=== PATIENT | female | born 1980 ===

== ENCOUNTER 2017-10-13 00:25 | Emergency (ER) | payer SELFPAY ==
[~2017-10-13] VITALS: Ht 162.6 cm; Wt 59.0 kg
[2017-10-13] MEDS ORDERED: Polytrim Eye Dr10 ML RIGHTEYE (00:40)
== END 2017-10-13 00:50 | disposition home or self-care (01) ==
LOC: ER 00:25
DX: H10.021 Other mucopurulent conjunctivitis, right eye (principal); F17.200 Nicotine dependence, unspecified, uncomplicated
CPT/HCPCS: 99282

== ENCOUNTER 2019-12-26 15:00 | Emergency (ER) | payer OTHER ==
[~2019-12-26] VITALS: Ht 162.6 cm; Wt 56.7 kg
[~2019-12-26 15:00] MED LIST: Polytrim Eye Dr10 ML RIGHTEYE
[2019-12-26] MEDS ORDERED: Amoxicillin500 MG PO (15:41)
== END 2019-12-26 15:58 | disposition home or self-care (01) ==
LOC: ER 15:00
DX: K04.7 Periapical abscess without sinus (principal); F17.200 Nicotine dependence, unspecified, uncomplicated
CPT/HCPCS: 99282

== ENCOUNTER 2021-09-30 04:40 | Emergency (ER) | payer OTHER ==
[~2021-09-30] VITALS: Ht 162.6 cm; Wt 59.0 kg
[~2021-09-30 04:40] MED LIST changes: +Amoxicillin500 MG PO
[2021-09-30] MEDS ORDERED: PERM5TC TOP (05:09)
== END 2021-09-30 05:17 | disposition home or self-care (01) ==
LOC: ER 04:40
DX: B86 Scabies (principal); F17.200 Nicotine dependence, unspecified, uncomplicated
CPT/HCPCS: 99282